=== PATIENT | female | born 1990 | race African-American/Black ===

== ENCOUNTER 2017-11-01 16:35 | Emergency (ER) | payer OTHER ==
[~2017-11-01] VITALS: Ht 154.9 cm; Wt 104.3 kg
[~2017-11-01 16:35] MED LIST: ACETAMINOPHEN-1 EAC1 PO; COLACE100 MG PO
[2017-11-01] MEDS ORDERED: ALEVE220 MG PO (16:42)
[2017-11-01 17:35] LABS: ABSOLUTE BASOPHILS 0.1 thou/uL (0.0-0.2); ABSOLUTE EOSINOPHILS 0.3 thou/uL (0.0-0.7); ABSOLUTE LYMPHOCYTES 2.5 thou/uL (0.8-5.3); ABSOLUTE MONOCYTES 0.9 thou/uL (0.0-1.2); ABSOLUTE NEUTROPHILS 4.8 thou/uL (1.6-8.1); BASOPHILS 0.7 %; EOSINOPHILS 3.9 %; HEMATOCRIT 37.7 % (37.0-47.0); HEMOGLOBIN 12.4 gm/dL (12.0-15.0); LYMPHOCYTES 29.5 %; MCH 28.6 pg (26.0-34.0); MCHC 32.7 g/dL (28.0-37.0); MCV 87.4 fL (80.0-100.0); MONOCYTES 10.4 %; MPV 9.6 fl. (7.2-11.1); NUCLEATED RBCS 0 /100WBC; PLATELET COUNT* 342 thou/uL (150-400); POLYS 55.5 %; RBC 4.32 mil/uL (4.20-5.00); RDW-CV 14.9 % (10.5-14.5); WBC 8.6 thou/uL (4.0-11.0)
[2017-11-01] MEDS ORDERED: NAPROSYN500 MG PO (17:57)
[2017-11-01] MEDS ORDERED: ACETAMINOPHEN-1 EAC1 PO (17:58)
[2017-11-01] MEDS ORDERED: ROBAXIN 750 MG750 M1 PO (17:58)
[2017-11-01 18:07] LABS: ANION GAP 6 mmol/L (7-16); BUN 11 mg/dL (7-18); CALCIUM 8.8 mg/dL (8.5-10.1); CHLORIDE 107 mmol/L (98-107); CO2 29 mmol/L (21-32); CREATININE 0.8 mg/dL (0.6-1.3); GLUCOSE 90 mg/dL (70-99); SODIUM 142 mmol/L (136-145)
[2017-11-01 18:14] LABS: ALBUMIN 3.2 g/dL (3.4-5.0); ALKALINE PHOSPHATASE 81 U/L (46-116); LIPASE 84 U/L (73-393); SGOT 21 U/L (15-37); SGPT 34 U/L (30-65); TOTAL BILIRUBIN 0.1 mg/dL (<0.1-1.0); TOTAL PROTEIN 7.9 g/dL (6.4-8.2); TROPONIN-I LEVEL <0.06 ng/mL (<0.06)
[2017-11-01 18:28] VITALS: BP 140/89
--- NOTE | 2017-11-02 16:27 | EKG ---
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: ARMANI : 1990 Requested By: Shawnee Ellis Order Number: [id number] MD: Home Saucedo Measurements Intervals [place] Rate: 86 P: -4 [place]: 132 QRS: 9 QRSD: 80 T: 0 QT: 392 QTc: 469 Interpretive Statements Sinus rhythm Borderline repolarization abnormality Borderline prolonged QT interval Baseline wander in lead(s) I No previous ECG available for comparison Electronically Signed On 11-02-2017 16:27:12 MASH GRINDER by Home Saucedo [email or web address] <ELECTRONICALLY SIGNED> By: Home Saucedo MD, [facility] 11/02/17 1627 D: 01/1638 38 Home Saucedo MD, FACC /EPI
== END 2017-11-01 18:29 | disposition home or self-care (01) ==
LOC: M.ERS 16:35
PROVIDERS: Physician Assistant
DX: R07.89 Other chest pain (principal); F10.99 Alcohol use, unspecified with unspecified alcohol-induced disorder